=== PATIENT | female | born 2000 | race Caucasian/White ===

== ENCOUNTER 2021-07-29 18:08 | Emergency (ER) | payer BC, SELFPAY ==
[2021-07-29 18:15] VITALS: BP 127/85; PULSE 99; RESP 16; TEMP 36.8; O2SAT 99
--- NOTE | 2021-07-29 18:30 | ED.GENADULT ---
HPI - General Adult General Chief complaint: Urogenital-Female Stated complaint: uti Source: patient Mode of arrival: ambulatory Limitations: no limitations History of Present Illness HPI narrative: Patient presents for evaluation of urinary symptoms since yesterday. Symptoms include frequency, dysuria, and suprapubic pain. No fever, chills, nausea, vomiting, back pain. LMP last week. No vaginal bleeding or discharge. She believes she has an urinary tract infection. She has increased her water intake today and symptoms have improved. She is compliant with oral contraception. Related Data Home Medications Medication Instructions Recorded Confirmed levonorgestrel-ethinyl estrad tablet 07/29/21 [Vienva] Allergies Allergy/AdvReac Type Severity Reaction Status Date / Time No Known Allergies Allergy Mild Verified 07/29/21 18:14 Review of Systems Review of Systems: CONSTITUTIONAL: Denies fever, chills, or sweats. EYES: Denies visual changes, redness, or discharge. ENT: Denies rhinorrhea, congestion, sore throat, or otalgia. CARDIOVASCULAR: Denies chest pain, palpitations, or edema. RESPIRATORY: Denies cough or dyspnea. GASTROINTESTINAL: Reports suprapubic pain. Denies nausea, vomiting, or diarrhea. GENITOURINARY: Reports urinary frequency, dysuria SKIN: Denies rash or itching. MUSCULOSKELETAL: Denies back pain, joint pain, or myalgia. NEUROLOGIC: Denies headache, numbness, dizziness, or weakness. PSYCHIATRIC: Denies anxiety or depression. [facility] Past Medical History Medical History (Updated 07/29/21 @ 18:31 by MALVIN Shelley, ) No pertinent past medical history Surgical History Surgical History No pertinent past surgical history Family History Family History Father Hypertension Hyperlipidemia Social History Social History Smoking status: Never smoker Alcohol intake: current Alcohol use details: social Substance use: never Occupation/Education: student Gender identity (if verbalized by the patient): Female Sexual Orientation (if Verbalized by the Patient): Straight or Heterosexual Exam Narrative: GENERAL: Well-appearing, well-nourished, and in no acute distress. HEAD: Normocephalic, atraumatic. EYES: PERRLA and EOMI. ENT: Nares clear, no rhinorrhea or epistaxis. Mucous membranes moist. Oropharynx without tonsillar hypertrophy exudate or other lesions. Bilateral TMs pearly burris nonbulging NECK: Supple. No adenopathy or masses. No carotid bruits or JVD CHEST: Clear to auscultation. No respiratory distress. No wheezes rales or rhonchi HEART: Regular rate and rhythm. No murmur heard. Normal peripheral pulses. ABDOMEN: Soft, nontender, nondistended, normal active bowel sounds. BACK: No CVA tenderness EXTREMITIES: Normal range of motion. No edema. SKIN: Warm, dry, no rash. NEURO: No focal deficits. Alert and oriented x3. PSYCH: Normal mood and affect. Course Course Emergency Course: This is a 20-year-old female who presented with reports of urinary symptoms. 3+ leukocytes noted in urine. No systemic signs of infection. Treat with Macrobid. Increase oral intake. Advised outpatient follow-up. Go to ER for fever, chills, nausea, vomiting, worsening symptoms. Pt in agreement with plan of care Level of Care: Express Care Visit Vital Signs Vital signs: Vital Signs Temperature 36.8 C 07/29/21 18:15 Pulse Rate 99 07/29/21 18:15 Respiratory Rate 16 07/29/21 18:15 Blood Pressure 127/85 07/29/21 18:15 Pulse Oximetry 99 07/29/21 18:15 Temperature 36.8 C 07/29/21 18:15 Pulse Rate 99 07/29/21 18:15 Respiratory Rate 16 07/29/21 18:15 Blood Pressure 127/85 07/29/21 18:15 Pulse Oximetry 99 07/29/21 18:15 Medical Decision Making Differential Diagnosis
== END 2021-07-29 18:35 | disposition home or self-care (01) ==
PROVIDERS: Emergency Provider Nurse Practitioner; PCP Pediatrics
DX: N30.00 Acute cystitis without hematuria (principal)
CPT/HCPCS: 81003; 87086; 87088; 99213; G0463